=== PATIENT | female | born 1980 | race Two or more races ===

== ENCOUNTER 2019-12-05 17:49 | Emergency (ER) | payer SELFPAY ==
[~2019-12-05] VITALS: Ht 152.4 cm; Wt 61.2 kg
[2019-12-05 18:43] VITALS: BP 135/80
== END 2019-12-05 21:39 | disposition left against medical advice (07) ==
LOC: ER 17:52
DX: L02.91 Cutaneous abscess, unspecified (principal); Z53.21 Procedure and treatment not carried out due to patient leaving prior to being seen by health care provider

== ENCOUNTER 2020-10-24 02:39 | Emergency (ER) | payer SELFPAY | END 2020-10-24 02:40 | disposition left against medical advice (07) | LOC: ER 02:39 | DX: H57.12 Ocular pain, left eye (principal); Z53.21 Procedure and treatment not carried out due to patient leaving prior to being seen by health care provider ==

== ENCOUNTER 2020-10-24 07:44 | Emergency (ER) | payer SELFPAY ==
[~2020-10-24] VITALS: Ht 152.4 cm; Wt 61.2 kg
[2020-10-24 08:20] VITALS: BP 137/69
[2020-10-24] MEDS ORDERED: CLINDAMYCIN 600MG IV 50 ML IV ONE (08:45)
[2020-10-24] MEDS ORDERED: KETOROLAC TROMETH 30 MG/ML 1ML VIAL IV ONE (08:45)
== END 2020-10-24 09:27 | disposition home or self-care (01) ==
LOC: ER 07:44
DX: H00.036 Abscess of eyelid left eye, unspecified eyelid (principal)
CPT/HCPCS: 70486; 96365; 96375; 99284; J1885; J3490